=== PATIENT | male | born 1990 | race Caucasian/White ===

== ENCOUNTER 2022-09-15 16:03 | Emergency (ER) | payer OTHER ==
[~2022-09-15] VITALS: Ht 170 cm; Wt 100.0 kg
--- NOTE | 2022-09-15 16:51 | ED GI ---
General Chief Complaint: Abdominal/GI Problems Stated Complaint: VOMITING Nursing Triage Note: PT AMB TO [facility] 6 PT CO OF RANDOM VOMITING AFTER EATING FOR APPROX 4 WEEKS. DENIES ABD PAIN. DENIES DIARRHEA OR FEVERS. STATES GETS A FEELING IN BACK OF THROAT LIKE SOMETHING THERE AND THROWS UP. PT WAS SEEN 2 WEEKS AGO AT [facility] AND PRESCIRBED OMEPROZOLE. STATES VOMITING NO BETTER Source of Information: Patient Exam Limitations: No Limitations History of Present Illness Date Seen by Provider: September 15, 2022 Time Seen by Provider: 16:31 Initial Comments 32-year-old male presents the ED with complaints of random vomiting for last 4 to 5 weeks. He states that it occurs approximately 3 times a day. He denies nausea prior to vomiting. He states that he feels like something is in his throat before vomiting, states that the sensation goes away after he vomits. States that most the time the emesis looks like saliva. States it is not always related to eating. Denies abdominal pain. Denies fevers, chest pain, shortness of air. Last had a normal bowel movement last night. Patient reports he has been seen twice for this at other facilities. He was started on omeprazole for possible gastritis. States this is not helping. Allergies and Home Medications Allergies Uncoded Allergies: POLLEN (Allergy, Unknown, 09/15/22) Patient Home Medication List Home Medication List Reviewed: Yes Ondansetron (Ondansetron Odt) 4 Mg Tab.rapdis, 4 MG SL Q4H PRN for NAUSEA/VOMITING Prescribed by: Danielle Rodriguez on 09/15/221817 Review of Systems Review of Systems Constitutional: see HPI Past Mziioxp-Mtuzpf-Atvvmr Hx Patient Social History Tobacco Use?: No Substance use?: No Alcohol Use?: No Pt feels they are or have been: No Immunizations Up To Date Influenza Vaccine Up-to-Date: No; Not Current First/Initial COVID19 Vaccinat: YES Second COVID19 Vaccination Owen: YES Past Medical History Surgery/Hospitalization HX: DENIES MEDICAL HX Physical Exam Vital Signs Vital Signs - First Documented 09/15/22 09/15/22 16:15 18:30 Pulse 65 Resp 18 B/P (MAP) 152/84 (106) Pulse Ox 98 O2 Delivery Room Air Capillary Refill : Height/Weight/BMI Height: '" Weight: lbs. oz. kg; 34.00 BMI Method: General Appearance: WD/WN, no apparent distress HEENT: pharynx normal Neck: supple, normal inspection Respiratory: lungs clear, normal breath sounds, no respiratory distress, no accessory muscle use Cardiovascular: regular rate, rhythm Gastrointestinal: normal bowel sounds, non tender, soft Extremities: normal range of motion, normal inspection Neurologic/Psychiatric: alert, normal mood/affect Skin: normal color, warm/dry Progress/Results/Core Measures Results/Orders Lab Results Laboratory Tests Test 09/15/22 16:15 09/15/22 17:21 Range/Units White Blood Count 7.2 4.3-11.0 10^3/uL Red Blood Count 5.56 H 4.30-5.52 10^6/uL Hemoglobin 16.4 13.3-17.7 g/dL Hematocrit 45 40-54 % Mean Corpuscular Volume 81 80-99 fL Mean Corpuscular Hemoglobin 30 25-34 pg Mean Corpuscular Hemoglobin Concent 37 H 32-36 g/dL Red Cell Distribution Width 12.6 10.0-14.5 % Platelet Count 277 130-400 10^3/uL Mean Platelet Volume 11.4 9.0-12.2 fL Immature Granulocyte % (Auto) 0 % Neutrophils (%) (Auto) 55 42-75 % Lymphocytes (%) (Auto) 35 12-44 % Monocytes (%) (Auto) 6 0-12 % Eosinophils (%) (Auto) 2 0-10 % Basophils (%) (Auto) 1 0-10 % Neutrophils # (Auto) 4.0 1.8-7.8 10^3/uL Lymphocytes # (Auto) 2.5 1.0-4.0 10^3/uL Monocytes # (Auto) 0.4 0.0-1.0 10^3/uL Eosinophils # (Auto) 0.1 0.0-0.3 10^3/uL Basophils # (Auto) 0.1 0.0-0.1 10^3/uL Immature Granulocyte # (Auto) 0.0 0.0-0.1 10^3/uL Sodium Level 140 135-145 MMOL/L Potassium Level 3.7 3.6-5.0 MMOL/L Chloride Level 106 98-107 MMOL/L Carbon Dioxide Level 23 21-32 MMOL/L Anion Gap 11 5-14 MMOL/L Blood Urea Nitrogen 14 7-18 MG/DL Creatinine 0.88 0.60-1.30 MG/DL Estimat Glomerular Filtration Rate 117 BUN/Creatinine Ratio 16 Glucose Level 79 70-105 MG/DL Calcium Level 9.9 8.5-10.1 MG/DL Corrected Calcium 8.5-10.1 MG/DL Total Bilirubin 1.6 H 0.1-1.0 MG/DL Aspartate Amino Transf (AST/SGOT) 28 5-34 U/L Alanine Aminotransferase (ALT/SGPT) 45 0-55 U/L Alkaline Phosphatase 76 40-136 U/L Total Protein 8.4 H 6.4-8.2 GM/DL Albumin 5.0 H 3.2-4.5 GM/DL Amylase Level 50 25-125 U/L Lipase 85 H 8-78 U/L Urine Color YELLOW Urine Clarity CLEAR Urine pH 6.0 5-9 Urine Specific [employer] 1.025 H 1.016-1.022 Urine Protein NEGATIVE NEGATIVE Urine Glucose (UA) NEGATIVE NEGATIVE Urine Ketones NEGATIVE NEGATIVE Urine Nitrite NEGATIVE NEGATIVE Urine Bilirubin NEGATIVE NEGATIVE Urine Urobilinogen 1.0 < = 1.0 MG/DL Urine Leukocyte Esterase NEGATIVE NEGATIVE Urine RBC (Auto) NEGATIVE NEGATIVE Urine RBC NONE /HPF Urine WBC NONE /HPF Urine Squamous Epithelial Cells NONE /HPF Urine Crystals NONE /LPF Urine Bacteria NEGATIVE /HPF Urine Casts NONE /LPF Urine Mucus SMALL H /LPF Urine Culture Indicated NO My Orders Orders - DANIELLE RODRIGUEZ APRN Comprehensive Metabolic Panel (09/15/22 16:46) Lipase (09/15/22 16:46) Amylase (09/15/22 16:46) Ua Culture If Indicated (09/15/22 16:46) Cbc With Automated Diff (09/15/22 16:46) Vital Signs/I&O 09/15/22 09/15/22 16:15 18:30 Pulse 65 68 Resp 18 20 B/P (MAP) 152/84 (106) 126/69 Pulse Ox 98 O2 Delivery Room Air Blood Pressure Mean: 106 Progress Progress Note : Progress Note Patient seen and evaluated, resting comfortably in bed, no acute distress. Based on exam and symptoms, work-up initiated including CBC, CMP, amylase, lipase, UA. Labs reviewed. CBC grossly normal, slightly elevated RBC 5.56.. CMP shows s lightly elevated total bilirubin 1.6, slightly elevated total protein 8.4, elevated albumin 5.0, amylase normal. Lipase slightly elevated 85. I do not think this is pancreatitis due to only slight elevation in lipase and no abdominal pain specifically mid upper abdominal pain. Results discussed with patient. Patient would like prescription for zofran. Discharge instructions and return precautions provided. Departure Impression Primary Impression: Vomiting Qualified Codes: R11.10 - Vomiting, unspecified Disposition: 01 HOME, SELF-CARE Condition: Stable Departure-Patient Inst. Referrals: NO,LOCAL PHYSICIAN (PCP/Family) Primary Care Physician Patient Instructions: Nausea and Vomiting, Adult Add. Discharge Instructions: Take Zofran as needed for nausea and vomiting, it can cause constipation. Follow-up with primary care provider. Return for severe vomiting, abdominal pain, or any other new, concerning, or worsening symptoms. All discharge instructions reviewed with patient and/or family. Voiced understanding. Scripts Ondansetron (Ondansetron Odt) 4 Mg Tab.rapdis 4 MG SL Q4H PRN for NAUSEA/VOMITING, #20 TAB 0 Refills Prov: DANIELLE RODRIGUEZ APRN 09/15/22 DANIELLE RODRIGUEZ APRN September 15, 2022 16:51
[2022-09-15 16:56] LABS: CHLORIDE 106 MMOL/L (98-107); POTASSIUM 3.7 MMOL/L (3.6-5.0); SODIUM 140 MMOL/L (135-145)
[2022-09-15 16:57] LABS: AMYLASE 50 U/L (25-125); BASOPHILS # (AUTO) 0.1 10^3/uL (0.0-0.1); BASOPHILS % (AUTO) 1 % (0-10); EOSINOPHILS # (AUTO) 0.1 10^3/uL (0.0-0.3); EOSINOPHILS % (AUTO) 2 % (0-10); HEMATOCRIT 45 % (40-54); HEMOGLOBIN 16.4 g/dL (13.3-17.7); LYMPHOCYTES # (AUTO) 2.5 10^3/uL (1.0-4.0); LYMPHOCYTES % (AUTO) 35 % (12-44); MEAN CORPUSCULAR HEMOGLOBIN 30 pg (25-34); MEAN CORPUSCULAR HGB CONC 37 g/dL (32-36); MEAN CORPUSCULAR VOLUME 81 fL (80-99); MEAN PLATELET VOLUME 11.4 fL (9.0-12.2); MONOCYTES # (AUTO) 0.4 10^3/uL (0.0-1.0); MONOCYTES % (AUTO) 6 % (0-12); NEUTROPHILS % (AUTO) 55 % (42-75); PLATELET COUNT 277 10^3/uL (130-400); WHITE BLOOD COUNT 7.2 10^3/uL (4.3-11.0)
[2022-09-15 16:58] LABS: CALCIUM 9.9 MG/DL (8.5-10.1)
[2022-09-15 16:59] LABS: GLUCOSE 79 MG/DL (70-105); TOTAL PROTEIN 8.4 GM/DL (6.4-8.2)
[2022-09-15 17:00] LABS: CARBON DIOXIDE 23 MMOL/L (21-32)
[2022-09-15 17:01] LABS: BILIRUBIN,TOTAL 1.6 MG/DL (0.1-1.0)
[2022-09-15 17:02] LABS: ALKALINE PHOSPHATASE 76 U/L (40-136); CREATININE SERUM 0.88 MG/DL (0.60-1.30); GFR ESTIMATED 117
[2022-09-15 17:03] LABS: BUN/CREATININE RATIO 16
[2022-09-15 17:05] LABS: ALANINE AMINOTRANSFERASE 45 U/L (0-55)
[2022-09-15 17:06] LABS: LIPASE 85 U/L (8-78)
[2022-09-15 17:35] LABS: BILIRUBIN,URINE NEGATIVE (NEGATIVE); CLARITY,URINE CLEAR; COLOR,URINE YELLOW; GLUCOSE, URINE (UA) NEGATIVE (NEGATIVE); KETONES,URINE NEGATIVE (NEGATIVE); LEUKOCYTE ESTERASE ,URINE NEGATIVE (NEGATIVE); NITRITE,URINE NEGATIVE (NEGATIVE); PROTEIN,URINE NEGATIVE (NEGATIVE)
[2022-09-15 17:51] LABS: BACTERIA,URINE NEGATIVE /HPF
[2022-09-15] MEDS ORDERED: ONDA4TAB11 SL (18:18)
[2022-09-15 18:30] VITALS: BP 126/69
== END 2022-09-15 18:30 | disposition home or self-care (01) ==
LOC: ER 16:06
DX: R11.10 Vomiting, unspecified (principal)
CPT/HCPCS: 36415; 80053; 81000; 82150; 83690; 85025